=== PATIENT | female | born 1965 | race Caucasian/White ===

== ENCOUNTER 2016-08-03 19:55 | Emergency (ER) | payer BC ==
[2016-08-03 20:09] VITALS: BP 115/61; PULSE 65; RESP 16; TEMP 97.7; O2SAT 99
[2016-08-03] MEDS ORDERED: HYDROCOD/APAP 5/325 PREPACK#6 BTL TAKEHOME ONE (20:41)
--- NOTE | 2016-08-03 20:45 | UCPHY ---
H & P Time Seen by Provider: 08/03/16 20:16 Patient Type: New HPI/ROS: This patient has nasal congestion over the past week. She reports associated sneezing. She also has a moderate sore throat associated with her symptoms and over the past 24 hours she has had increasing ear pain that is now 8/10 pressure bilaterally. She does not feel that should be of the sleep with the ear pain and she wants to rule out ear infection. She also reports a mild dry intermittent cough that started over the past 24 hours. ROS: No fevers or chills. No other constitutional symptoms. HEENT: She reports no drainage from her ears. She has no significant facial pain or pressure. Pulmonary: No pleuritic pain. No dyspnea. Cardiovascular: No complaints GI: No complaints 7 point ROS is otherwise negative. Past Medical/Surgical History: Depression. Otherwise healthy Smoking Status: Current some day smoker (Patient has 1-2 cigarettes a day.) Physical Exam: Physical Exam Vital signs are normal. General: No acute distress HEENT: Nose: Clear discharge bilaterally. No sinus tenderness to percussion. Ears: External canals and tympanic membranes are clear with no erythema the patient has serous effusions bilaterally with mild bulge or TMs. However there is no erythema TMs no purulence to the effusions.. Oropharynx: No erythema or exudates. No dysphonia. No drooling or stridor. Eyes: Pupils equal and react to light. Extraocular motions are intact. Lungs: Clear to auscultation bilaterally with no rales, rhonchi or wheeze. No respiratory distress. Cardiac: Regular rate and rhythm with no murmur gallop or rub Skin: No rash or pallor. Neuro: Alert with no focal deficits noted. Initial differential diagnosis: Viral URI with cough and serous otitis. Doubt bronchitis or sinusitis. Constitutional: Initial Vital Signs Temperature (C) 36.5 C 08/03/16 20:07 Heart Rate 65 08/03/16 20:07 Respiratory Rate 16 08/03/16 20:07 Blood Pressure 115/61 08/03/16 20:07 O2 Sat (%) 99 08/03/16 20:07 O2 Delivery Mode Room Air Allergies/Adverse Reactions: No Known Allergies Allergy (Unverified 08/03/16 20:06) Home Medications: Medication Instructions Recorded Albuterol Hfa Anes Only [Proair 2 puffs IH Q4 PRN #1 mdi 08/03/16 Hfa Icu (*)] Hydrocodone/APAP 5/325 [[place] 1 - 2 tab PO Q4PRN PRN #10 tab 08/03/16 5/325 (*)] Prozac 10 MG (*) 08/03/16 Wellbutrin 100mg (*) 08/03/16 MDM/Departure - [facility] ED Course/Re-evaluation: This patient appears very well clinically. No clinical evidence of lower respiratory infection other concerning findings. - Depart Disposition: Home, Routine, Self-Care Clinical Impression: Viral URI with cough Serous otitis media Qualifiers: Laterality: bilateral Chronicity: acute Recurrence: not specified as recurrent Qualified Code(s): H65.03 - Acute serous otitis media, bilateral Condition: Good Instructions: Serous Otitis Media (ED) Additional Instructions: Diagnoses: 1. Viral URI with cough 2. Serous otitis Plan: Humidifier Guaifenesin [id number] Continue Flonase steroid nasal inhaler Ibuprofen for pain as [id number] mg per 6 hours The Vicodin for pain control in addition if needed. No driving, alcohol work Vicodin Your symptoms should improve over the next 3-7 days Return for any significant worsening despite treatment plan Prescriptions: Albuterol Hfa Anes Only [Proair Hfa Icu (*)] 2 puffs IH Q4 PRN #1 mdi PRN Reason: Wheezing Hydrocodone/APAP 5/325 [[place] 5/325 (*)] 1 - 2 tab PO Q4PRN PRN #10 tab PRN Reason: Pain Referrals: TYRESE KIMBROUGH [Primary Care Provider] - As per Instructions - PQRS PQRS Measurement: NA
== END 2016-08-03 20:59 | disposition home or self-care (01) ==
LOC: CED 19:55
DX: J06.9 Acute upper respiratory infection, unspecified (principal); R05 Cough; H65.03 Acute serous otitis media, bilateral; F17.200 Nicotine dependence, unspecified, uncomplicated
CPT/HCPCS: G0463-PO

== ENCOUNTER 2018-05-21 16:18 | Emergency (ER) | payer BC ==
[2018-05-21 16:35] VITALS: BP 125/66
[2018-05-21] MEDS ORDERED: CEPHALEXIN 500MG PREPACK#4 BTL TAKEHOME ONE (17:06)
--- NOTE | 2018-05-21 17:06 | EDPHY ---
H & P Time Seen by Provider: 05/21/18 17:02 HPI/ROS: CHIEF COMPLAINT: Dysuria, frequency, constipation HISTORY OF PRESENT ILLNESS: The patient is a 53-year-old female presents emergency department with dysuria, frequency constipation. Patient has had previous urinary tract infection. Her symptoms today feel similar. She has had ongoing burning with urination. She initially saw some blood in her urine but that is resolved. She now feels as though she has not had an normal bowel movement for the past 10 days. She feels constipated. No significant abdominal pain. She has had mild nausea with no vomiting. No fevers or chills. No flank pain. REVIEW OF SYSTEMS: 10 systems were reveiwed and are negative with the exception of the elements mentioned in the history of present illness. Past Medical/Surgical History: Includes UTI, depression Social history: Patient does not smoke Smoking Status: Former smoker Physical Exam: Vitals noted GENERAL: Well-appearing, in no acute distress, alert. HEENT: Eyes normal to inspection, normal pharynx, no signs of dehydration. NECK: Normal, supple. RESPIRATORY: Clear to auscultation bilaterally, no rales, rhonchi or wheezing. CVS: Regular rate and rhythm, no rubs, murmurs, or gallops. ABDOMEN: Soft, nontender, nondistended, no organomegaly. Benign BACK: Normal to inspection, no CVA tenderness. SKIN: Normal color, no rash, warm, dry. No pallor. EXTREMITIES: No pedal edema, no calf tenderness, no Homans sign or cords, no joint swelling. NEURO/PSYCH: Alert and oriented, normal mood and affect, normal motor sensory exam. Constitutional: Initial Vital Signs Temperature (C) 36.7 C 05/21/18 16:32 Heart Rate 64 05/21/18 16:32 Respiratory Rate 18 05/21/18 16:32 Blood Pressure 125/66 H 05/21/18 16:32 O2 Sat (%) 99 05/21/18 16:32 O2 Delivery Mode Room Air Allergies/Adverse Reactions: No Known Allergies Allergy (Unverified 05/21/18 16:31) Home Medications: Medication Instructions Recorded Cephalexin [Keflex (*)] 500 mg PO QID #12 cap 05/21/18 Citalopram 05/21/18 Estradiol 05/21/18 Wellbutrin Xl 05/21/18 medroxyPROGESTERone 05/21/18 Medical Decision Making ED Course/Re-evaluation: In the emergency department I discussed possible etiologies. I answered all of her questions. The initial urine dip showed positive blood but no other remarkable findings. The patient's urine will be sent for culture. Patient states her symptoms feel similar to previous UTIs. Patient has a benign abdominal exam. Vital signs are normal. She is well-appearing. She will be treated with a 3 day course of Keflex to cover for possible infection and did not show up on the urine dip. She was given instructions on taking Metamucil for the next 5 days to see if this improves her constipation. She will return to the emergency department with worsening symptoms. Differential Diagnosis: My differential includes but is not limited to urinary tract infection, pyelonephritis, kidney stone, , ectopic , ovarian cyst, ovarian torsion small-bowel obstruction, perforation, constipation - Data Points Point of Care Test Results: Urine Dip Collection Date 05/21/18 Collection Time 14:45 Specific [place] (1.002-1.030) 1.020 PH (5.0-7.5) 7.0 Leukocytes (Negative) Negative Nitrites (Negative) Negative Protein (Negative) Negative Glucose (Negative) Negative Ketones (Negative) Negative Urobilnogen (0.2-1.0 EU) 0.2 Bilirubin (Negative) Negative Blood (Negative) 1+ Departure - Departure Disposition: Home, Routine, Self-Care Clinical Impression: Urinary tract infection Qualifiers: Urinary tract infection type: acute cystitis Hematuria presence: without hematuria Qualified Code(s): N30.00 - Acute cystitis without hematuria Constipation Qualifiers: Constipation type: unspecified constipation type Qualified Code(s): K59.00 - Constipation, unspecified Condition: Good Instructions: Urinary Tract Infection in Women (ED), High Fiber Diet (ED), Constipation (ED) Additional Instructions: Return with increasing pain, fever, vomiting, or any other concerns. Take your entire course of antibiotics. Urine cultures pending. Referrals: TYRESE KIMBROUGH [Primary Care Provider] - 3-4 days, if not improved
== END 2018-05-21 17:24 | disposition home or self-care (01) ==
LOC: CED 16:18
DX: N30.00 Acute cystitis without hematuria (principal); K59.00 Constipation, unspecified; Z87.891 Personal history of nicotine dependence